=== PATIENT | male | born 1975 | race Caucasian/White ===

== ENCOUNTER 2024-02-09 08:01 | Day surgery (SDC) | payer OTHER ==
[~2024-02-09] VITALS: Ht 157.5 cm; Wt 95.3 kg
[2024-02-09] MEDS ORDERED: MIDAZOLAM HCL 5 MG/5 ML VIAL ONE (08:09)
[2024-02-09] MEDS ORDERED: MEPERIDINE 100 MG INJ. 100 MG/ML VIAL ONE (08:09)
[2024-02-09 12:26] VITALS: O2SAT 97
[2024-02-09 16:46] VITALS: BP_SYST 125; PULSE 85; RESP 16
== END 2024-02-09 12:05 | disposition home or self-care (01) ==
LOC: SDS 08:01 → SMU 08:02 → SDS 12:05
PROVIDERS: ATTEND Internal Medicine
DX: Z12.11 Encounter for screening for malignant neoplasm of colon (principal); K63.89 Other specified diseases of intestine; K63.5 Polyp of colon; K62.1 Rectal polyp; K64.8 Other hemorrhoids; Z87.891 Personal history of nicotine dependence; Z80.0 Family history of malignant neoplasm of digestive organs
CPT/HCPCS: 45380; 45385; 99152; 88305; G0378; J2250; J2175